=== PATIENT | male | born 1990 | race Caucasian/White ===

== ENCOUNTER 2021-11-26 21:58 | Emergency (ER) | payer OTHER ==
[2021-11-26 22:05] VITALS: BP 127/75; PULSE 95; TEMP 98.7; BMI 25.0
[2021-11-26 22:32] LABS: HEMATOCRIT 48.8 % (35.4-49); HEMOGLOBIN 17.7 G/dL (11.7-16.9); MCH 33.1 pg (25.7-33.7); MCHC 36.3 g/dl (32.0-35.9); MEAN CELL VOLUME 91.2 fl (80-96); MEAN PLT VOLUME 7.5 fl (7.5-11.1); PLATELET COUNT 267.7 10^3/uL (134-434); RBC 5.35 10^6/uL (4.00-5.60); RDW 13.7 % (11.9-15.9); WHITE BLOOD COUNT 15.7 10^3/uL (4.0-10.8)
[2021-11-26 22:45] LABS: ALBUMIN 4.6 g/dl (3.4-5.0); BILIRUBIN,TOTAL 0.8 mg/dl (0.2-1); CALCIUM 9.5 mg/dl (8.5-10); CREATININE 0.9 mg/dl (0.55-1.3); TOT PROT 7.5 g/dl (6.4-8.2)
[2021-11-26] MEDS ORDERED: HYOSCYAMINE SULFATE 0.125 MG *ODT PO ONE (23:01)
[2021-11-27] MEDS ORDERED: morphine SULFATE 4 MG/ML VIAL ONE (00:32)
[2021-11-27] MEDS ORDERED: morphine CARPU-JECT 2 MG/1 ML DISP.SYRIN IVPUSH ONE (03:23)
== END 2021-11-27 03:15 | disposition left against medical advice (07) ==
LOC: FER 21:58
PROC: 3E033NZ Introduction of Analgesics, Hypnotics, Sedatives into Peripheral Vein, Percutaneous Approach (ICD-10-PCS; principal; 2021-11-26)
DX: K62.5 Hemorrhage of anus and rectum (principal); R10.9 Unspecified abdominal pain
CPT/HCPCS: 36415; 74177-TC; 80053; 85025; 99285-25; Q9967